=== PATIENT | female | born 1980 | race Caucasian/White ===

== ENCOUNTER 2016-10-23 22:54 | Emergency (ER) | payer OTHER ==
--- NOTE | 2016-10-23 23:03 | EDM.PDOC ---
ED HPI Trauma - General Stated Complaint: LACERATION TO LEFT FOOT Time Seen by Provider: 10/23/16 23:03 - History of Present Illness INITIAL COMMENTS - FREE TEXT/NARRATIVE: 36-year-old female presents emergency room with laceration on her left pinky toe. This occurred shortly before arrival the patient was walking in the garage and hit a trash bag that had some broken glass in it. Patient denies any other injury associated with this. Patient's last tetanus shot was over 10 years ago. Allergies/ADRs: Allergies cefaclor [From Ceclor] Allergy (Verified 10/23/16 23:06) Hives Cephalosporins Allergy (Verified 10/23/16 23:06) Hives Home Medications: Ambulatory Orders buPROPion [Wellbutrin] 75 mg PO BEDTIME 10/23/16 [Confirmed 10/23/16] Doxycycline Hyclate 100 mg PO Q12H #13 capsule 10/24/16 Review of Systems - Review of Systems Review Of Systems: See Below Constitutional: Reports: no symptoms Respiratory: Reports: No Symptoms Cardiovascular: Reports: no symptoms GI/Abdominal: Reports: No symptoms Trauma Exam - Physical Exam Exam: See Below Exam Limited By: No limitations General Appearance: Reports: alert, no apparent distress Respiratory Exam: Reports: no respiratory distress, lungs clear, normal breath sounds Cardiovascular: Reports: regular rate, rhythm, no edema, no murmur Extremities: Reports: other (Patient is a curvilinear laceration on the plantar aspect of her fifth toe vascular status appears to be intact however the proximal portion of the curvilinear laceration looks darker than surrounding tissue. This laceration has a lateral base that is not lacerated the laceration is indeed hoarse shoe shaped) ED TRAUMA EXTREMITY PROCEDURES - Laceration/Wound Repair Left Toes Lac/wound length in cm: 2.3 Appearance: subcutaneous Distal NVT: neuro & vascular intact Anesthetic type: digital Local anesthesia - Lidocaine (Xylocaine): 1% plain Local anesthetic volume: 2cc Skin prep: saline Saline irrigation (cc's): 80 Exploration/Debridement/Repair: wound explored, in a bloodless field, explored to base Closed with: sutures Suture size: 4-0 # of sutures: 7 Suture type: nylon Tetanus status addressed: Yes (This needed to be updated) Complications: No Progress/Comments: 0.3 cm curved laceration almost horseshoe shape with the base lateral. Dusky- looking tissue on the proximal flap this improved after suturing. Patient had a sterile dressing applied she will wear a postop shoe. Course - Vital Signs Last Recorded V/S: Last Vital Signs Temp 36.6 C 10/23/16 23:03 Pulse 71 10/23/16 23:03 Resp 16 10/23/16 23:03 BP 145/89 H 10/23/16 23:03 Pulse Ox 99 10/23/16 23:03 - Orders/Labs/Meds Orders: Active Orders 24 hr Category Date Time Status Vaccines to be Administered [RC] PER UNIT ROUTINE Care 10/23/16 23:13 Active Durable Medical Equipment for Discharge [DME for Oth 10/24/16 00:08 Ordered Discharge] [COMM] Stat Meds: Medications Discontinued Medications Generic Name Dose Route Start Last Admin Trade Name Ajayq PRN Reason Stop Dose Admin Diphtheria/Tetanus/Acell Pertussis 0.5 ml 10/23/16 23:12 10/23/16 23:28 Boostrix IM 10/23/16 23:13 0.5 ml .ONCE ONE Administration Doxycycline Hyclate 100 mg 10/24/16 00:08 Vibramycin PO 10/24/16 00:09 ONETIME ONE Lidocaine HCl 50 ml 10/23/16 23:12 10/23/16 23:26 Xylocaine 1% INJECT 10/23/16 23:13 Not Given ONETIME ONE Lidocaine HCl 30 ml 10/23/16 23:21 10/23/16 23:29 Xylocaine 1% INJECT 10/23/16 23:22 Not Given ONETIME ONE Lidocaine HCl Confirm 10/23/16 23:21 10/23/16 23:28 Xylocaine-Mpf 1% Administered 10/23/16 23:22 30 ml Dose Administration 30 ml .ROUTE .STK-MED ONE Departure - Departure Time of Disposition: 00:12 Disposition: Home, Self-Care 01 Clinical Impression: Laceration of fifth toe of left foot Prescriptions: Doxycycline Hyclate 100 mg PO Q12H #13 capsule Additional Instructions: Return to emergency room if any questions or problems. Return with any concerns of worsening pain or infection. Use the postop shoe for 5 days or so and then continue to wear open toe shoes. Keep laceration clean and dry after 24 hours he may let water gently roll over it for only a few seconds then gently dab dry no scrubbing. He then started on doxycycline take one twice daily until gone your first dose was given in the emergency room take her second dose late morning after you pick it up from the pharmacy. - My Orders Last 24 Hours: My Active Orders 10/23/16 23:13 Vaccines to be Administered [RC] PER UNIT ROUTINE 10/24/16 00:08 Durable Medical Equipment for Discharge [DME for Discharge] [COMM] Stat - Assessment/Plan Last 24 Hours: My Active Orders 10/23/16 23:13 Vaccines to be Administered [RC] PER UNIT ROUTINE 10/24/16 00:08 Durable Medical Equipment for Discharge [DME for Discharge] [COMM] Stat
[2016-10-23] MEDS ORDERED: Diphtheria,Pertussis(Acell),Tetanus Vaccine 0.5 ML SDV inactive IM ONE (23:12)
[2016-10-23] MEDS ORDERED: Lidocaine 1% 20 ML MDV INJECT ONE (23:12)
[2016-10-23] MEDS ORDERED: Lidocaine 1% 30 ML SDV ONE (23:21)
[2016-10-23] MEDS ORDERED: Lidocaine 1% 50 ML MDV INJECT ONE (23:21)
[2016-10-24] MEDS ORDERED: Doxycycline 100 MG Cap PO ONE (00:08)
[2016-10-24 00:30] VITALS: BP 118/74
== END 2016-10-24 00:25 | disposition home or self-care (01) ==
LOC: JD.ED 22:54
DX: S91.115A Laceration without foreign body of left lesser toe(s) without damage to nail, initial encounter (principal); W25.XXXA Contact with sharp glass, initial encounter; Z23 Encounter for immunization; Z88.1 Allergy status to other antibiotic agents
CPT/HCPCS: 12001; 90471; 99283; A9270; 90715